=== PATIENT | female | born 1975 | race Caucasian/White ===

== ENCOUNTER 2024-07-18 05:23 | Emergency (ER) | payer OTHER, SELFPAY ==
[2024-07-18 05:23] VITALS: BMI 26.4
[2024-07-18 05:34] VITALS: BP 110/78
[2024-07-18 05:48] VITALS: BP 107/73
[2024-07-18 06:00] VITALS: BP 116/73
[2024-07-18 06:17] LABS: % Basophils 0.6 % (0-2); % Eosinophils 2.1 % (0-6); % Immature Granulocytes 0.4 % (0-0.5); % Lymphocytes 23.3 % (20.5-51.1); % Neutrophils 64.6 % (42.2-75.2); Absolute Eosinophils 0.1 10^3/uL (0-0.7); Absolute Lymphocytes 1.2 10^3/uL (1.2-3.4); Absolute Monocytes 0.5 10^3/uL (0.1-0.6); Absolute Neutrophils 3.4 10^3/uL (1.4-6.5); Hematocrit 37.8 % (37.0-47.0); Hemoglobin 12.3 g/dL (12.0-16.0); Mean Corp Hgb Conc. 32.5 g/dL (33.0-37.0); Mean Corpuscular Volume 83.1 fL (81.0-99.0); Mean Platelet Volume 11.3 fL (7.4-10.4); Nucleated Red Blood Cells % 0 %; Platelet Count 224 10^3/uL (130-400); Red Blood Cell Count 4.55 10^6/uL (4.20-5.40); Red Cell Dist. Width 14.6 % (11.5-14.5); White Blood Cell Count 5.2 10^3/uL (4.8-10.8)
[2024-07-18 06:38] LABS: ALT (SGPT) 18 U/L (0-35); AST (SGOT) 23 U/L (14-36); Albumin 4.6 g/dl (3.5-5.0); Alkaline Phosphatase 37 U/L (38-126); Blood Urea Nitrogen 16 mg/dl (7-17); Calcium 9.1 mg/dl (8.4-10.2); Carbon Dioxide 25 mmol/L (22-30); Chloride 104 mmol/L (98-107); Estimated Creatinine Clearance 85 ml/min; Glucose 103 mg/dl (70-99); Potassium 4.3 mmol/L (3.5-5.1); Sodium 139 mmol/L (135-145); Total Bilirubin 0.3 mg/dl (0.2-1.3); Total Protein 7.3 g/dl (6.3-8.2); eGFR > 60.00
[2024-07-18 06:49] LABS: Troponin I < 0.012 ng/ml
[2024-07-18 07:00] VITALS: BP 94/53
--- NOTE | 2024-07-18 07:20 | ED.GENMED ---
History of Present Illness
General
Chief Complaint: Chest Pain
Source: patient
Exam Limitations: none
Time Seen by Provider: 07/18/24 06:14
Nursing documentation reviewed up to this point in time: agreed with
History of Present Illness
History of Present Illness:
Patient presents to ED for evaluation after waking up with left-sided chest pain around 3 AM. Chest pain described as pressure, intermittent, lasting minutes at a time, associated with mild nausea sensation. Since then, chest pain is resolved
completely. Denies previous history of similar symptoms. Denies associated shortness of breath, dizziness, or diaphoresis. Denies recent travel or surgery. Denies recent illness. Denies recent change in diet or medications. Denies family
history of heart disease. Patient does not smoke and drink alcohol socially.
Review of Systems
Review of Systems
Allergies reviewed?: Yes
All Other Systems: ROS reviewed and negative except as documented in HPI and ROS
Constitutional: Reports no symptoms
EENT: Reports no symptoms
Respiratory: Reports no symptoms; Denies trouble breathing
Cardiac: Reports chest pain; Denies palpitations or syncope
ABD/GI: Reports no symptoms; Denies abdominal pain, nausea or vomiting
: Reports no symptoms
Musculoskeletal: Reports no symptoms
Skin: Reports no symptoms
Neurological: Reports no symptoms
Phy Exam
Physical Exam
Physical Exam:
Physical Exam
General: no apparent distress, not acutely ill. afebrile
Head: nc/at. eomi
Neck: supple. normal range of motion.
Heart: s1/s2 regular rate and rhythm, no murmur. equal radial pulses.
Lungs: no acute respiratory distress. clear bilaterally. chest wall nontender to palpation
Abdomen: normal bowel sounds. not tender.
Neuro: alert and oriented. no focal neurological deficits
Skin: no rash
Psychiatric: well kept. interactive and cooperative
Extremities: no edema. no calf tenderness.
Scores
Heart Score for Chest Pain Patients
STEMI patient?: No
History: Slightly or Non-Suspicious
ECG: Normal
Age: >45 - <65 years
Risk Factors: No Risk Factors
Troponin: </= Normal Limit
Heart Score for Chest Pain Patients: 1
Heart Score Risk: 2.5% MACE over next 6 weeks
Course
Orders/Labs/Results
Orders:
Orders
07/18/24 05:24
ECG [Electrocardiogram (*1)] Urgent
Reason for Study: Chest Pain
EKG- Treatment ONCE
07/18/24 06:06
Complete Blood Count/With Diff Urgent
Comprehensive Metabolic Panel Urgent
Troponin I Urgent
07/18/24 06:38
Electrocardiogram (*1) Urgent
Reason for Study: Chest Pain
EKG- Treatment ONCE
07/18/24 06:40
CR Chest - 2 Views Urgent
Comment:
Reason For Exam: chest pain
07/18/24 10:08
Troponin I Urgent
Abnormal Lab Results
07/18/24
06:06
MCHC 32.5 L g/dL
(33.0-37.0)
RDW 14.6 H %
(11.5-14.5)
MPV 11.3 H fL
(7.4-10.4)
Glucose 103 H mg/dl
(70-99)
Alkaline Phosphatase 37 L U/L
(38-126)
07/18/24 06:06
07/18/24 06:06
Vital Signs
Initial and Last Documented VS:
Initial Vital Signs
Temp Pulse Resp BP Pulse Ox
98.2 F 84 18 110/78 100
07/18/24 05:34 07/18/24 05:34 07/18/24 05:34 07/18/24 05:34 07/18/24 05:34
Last Documented Vital Signs
Temp Pulse Resp BP Pulse Ox
98.2 F 64 12 100/69 99
07/18/24 05:34 07/18/24 11:45 07/18/24 11:45 07/18/24 10:05 07/18/24 11:45
MDM/Problems Addressed
MDM/Problems Addressed:
Patient remains chest pain-free during extended course of observation ED, along with an unremarkable workup, including repeat troponin. As such, decision made to discharge patient home at this time, with referral to cardiology for an outpatient
consultation. Patient advised to return to ED with recurrent chest pain.
*EKG
Interpreted by ED Provider?: Yes
EKG Intrepretation Date: 07/18/24
Heart Rate: 80
Rate: normal
Rhythm: sinus
[place]: normal axis
Ischemia: non-specific ST changes
*Critical Care Note
Total Time (30-74mins, 75-104mins- exclusive of procedures): Not Applicable
ED Attending Note
-
Portions of this chart may have been created with voice recognition software.� Occasional wrong word or��sound alike� substitutions may have occurred due to the inherent limitations of voice recognition software.
Discharge Plan
Departure
Patient Disposition: Home (Routine Discharge)
Date of Disposition: 07/18/24
Time of Disposition: 11:19
Patient with high blood pressure during this ER visit?: No
Condition: Good
Discharge Problem:
Chest pain
Instructions: Chest Pain [facility] Follow Up
Referrals:
Alon Ramirez MD [Family Provider] -
Brad Zurita DO [Active] -
Activity Restrictions/Additional Instructions:
As discussed, please follow-up with your primary care physician and/or referred engravings polisher evaluation and treatment. Please consider return to ED with recurrent chest pain.
Interventions
Interventions:
*Risk Screen - Suicide Last Done: 07/18/24 05:25
*General Assessment Last Done: 07/18/24 06:00
*Neglect/Abuse Screening Last Done: 07/18/24 05:25
ED- Fall Risk Assessment Last Done: 07/18/24 06:01
*ED COVID-19 Vaccine History Last Done: 07/18/24 06:00
*Nursing Disposition Last Done: 07/18/24 11:20
ED- Cardiac Assessment Last Done: 07/18/24 06:01
Discharge Date and Time
Discharge Date/Time: 07/18/24 11:20
Print Language: CZECH
[2024-07-18 08:00] VITALS: BP 98/69
[2024-07-18 10:05] VITALS: BP 100/69
[2024-07-18 10:38] LABS: Troponin I < 0.012 ng/ml
== END 2024-07-18 11:20 | disposition home or self-care (01) ==
LOC: EMR 05:23
PROVIDERS: Student in an Organized Health Care Education/Training Program; EMERGENCY PHYSICIAN Emergency Medicine; FAMILY PHYSICIAN Family Medicine
DX: R07.89 Other chest pain (principal); R11.0 Nausea
CPT/HCPCS: 99285; 71046; 80053; 84484; 85025; 93005

== ENCOUNTER 2024-11-23 06:27 | Day surgery (SDC) | payer OTHER, SELFPAY | END 2024-11-23 14:06 | disposition home or self-care (01) | LOC: GI 06:27 | PROVIDERS: ATTENDING PHYSICIAN Internal Medicine | DX: Z12.11 Encounter for screening for malignant neoplasm of colon (principal); K64.8 Other hemorrhoids; Z83.719 Family history of colon polyps, unspecified | CPT/HCPCS: G0105 ==